=== PATIENT | male | born 1975 | race African-American/Black ===

== ENCOUNTER 2018-05-25 10:18 | Inpatient (IN) | payer OTHER ==
[~2018-05-25] VITALS: Ht 188 cm; Wt 78.1 kg
[2018-05-25] VITALS (12 sets, daily range): BP systolic 117–144; BP diastolic 86–106
[~2018-05-25 10:18] MED LIST: BLOOD PRESSURE; NOHOMEMEDS
[2018-05-25 11:07] LABS: HEMATOCRIT 31.5 % (38.0-50.0); HEMOGLOBIN 11.2 G/DL (12.5-16.6); MCH 29.1 PG (29.0-34.0); MCHC 35.6 G/DL (30.0-36.0); MCV 81.8 FL (86-99); PLATELET COUNT 157 K/uL (156-360); RBC DIS.WIDTH-CV 12.5 % (11.8-14.6); RBC DIS.WIDTH-SD 37.4 % (39-53); RED BLOOD COUNT 3.85 M/uL (4.00-5.50); WHITE BLOOD COUNT 9.3 K/uL (4.1-10.2)
[2018-05-25 11:15] LABS: INTER. NORMALIZED RATIO 1.5
[2018-05-25 11:18] LABS: ALBUMIN 3.4 g/dL (3.2-4.8); PTT 25.8 SEC (25-37)
[2018-05-25 11:19] LABS: CHLORIDE 89 mEq/L (99-109); SODIUM 133 mEq/L (136-147)
[2018-05-25 11:21] LABS: GLUCOSE 146 mg/dL (70-99); POTASSIUM 2.3 mEq/L (3.7-5.4); TOTAL PROTEIN 7.4 g/dL (6.4-8.3)
[2018-05-25 11:24] LABS: ALKALINE PHOSPHATASE 57 IU/L (3-129); SERUM ETHYL ALCOHOL < 10 mg/dL
[2018-05-25 11:25] LABS: CREATININE 3.9 mg/dL (0.6-1.3); GFR ESTIMATE (CALCULATED) 22 mL/min/ (58.99-99999)
[2018-05-25 11:26] LABS: AST (GOT) 24 IU/L (2-34); UREA NITROGEN (BUN) 35 mg/dL (9-23)
[2018-05-25 11:28] LABS: TROP-I INTERPRETATION POSITIVE
[2018-05-25 11:28] LABS: ALT (GPT) 10 IU/L (3-49); LIPASE 24 U/L (1.0-51.0)
[2018-05-25 11:42] LABS: TROPONIN-I 1.57 ng/mL (0.0-0.30)
[2018-05-25 12:02] LABS: APPEARANCE CLEAR ((CLEAR)); BILIRUBIN NEGATIVE; BLOOD SMALL; COLOR YELLOW ((YELLOW)); GLUCOSE (STRIP) 50; KETONES 5; LEUKOCYTES NEGATIVE; NITRITE NEGATIVE; PROTEIN (STRIP) >=500; UROBILINOGEN 0.2 MG/DL (0.2-1.0)
[2018-05-25 12:18] LABS: BACTERIA NONE SEEN /HPF; EPITHELIAL CELLS NONE SEEN /HPF; HYALINE CASTS 0-5 /LPF; MUCUS TRACE /LPF; RED BLOOD CELLS 0-5 /HPF (0-5); UCUL ADDED? NO; WHITE BLOOD CELLS 0-5 /HPF (0-5)
[2018-05-25] MEDS ORDERED: ADVIL200 MG PO (15:49)
[2018-05-25 19:05] LABS: CHLORIDE 96 mEq/L (99-109); SODIUM 135 mEq/L (136-147)
[2018-05-25 19:07] LABS: GLUCOSE 138 mg/dL (70-99)
[2018-05-25 19:09] LABS: POTASSIUM 2.9 mEq/L (3.7-5.4)
[2018-05-25 19:11] LABS: CREATININE 4.1 mg/dL (0.6-1.3); GFR ESTIMATE (CALCULATED) 21 mL/min/ (58.99-99999); UREA NITROGEN (BUN) 37 mg/dL (9-23)
[2018-05-25 19:16] LABS: TROP-I INTERPRETATION POSITIVE
[2018-05-25 19:17] LABS: TROPONIN-I 1.49 ng/mL (0.0-0.30)
[2018-05-26] VITALS (38 sets, daily range): BP systolic 123–1465; BP diastolic 76–106
[2018-05-26 03:10] LABS: CHLORIDE 96 mEq/L (99-109); POTASSIUM 2.9 mEq/L (3.7-5.4); SODIUM 136 mEq/L (136-147)
[2018-05-26 03:11] LABS: GLUCOSE 131 mg/dL (70-99)
[2018-05-26 03:15] LABS: CREATININE 4.4 mg/dL (0.6-1.3); GFR ESTIMATE (CALCULATED) 19 mL/min/ (58.99-99999)
[2018-05-26 03:16] LABS: UREA NITROGEN (BUN) 40 mg/dL (9-23)
[2018-05-26 03:22] LABS: TROP-I INTERPRETATION POSITIVE
[2018-05-26 03:23] LABS: TROPONIN-I 1.38 ng/mL (0.0-0.30)
[2018-05-27] VITALS (23 sets, daily range): BP systolic 130–162; BP diastolic 76–100
[2018-05-27 05:56] LABS: CHLORIDE 98 MEQ/L (99-109); CREATININE 4.2 MG/DL (0.6-1.3); GFR ESTIMATE (CALCULATED) 20 mL/min/ (58.99-99999); GLUCOSE 138 mg/dL (70-99); POTASSIUM 2.5 MEQ/L (3.7-5.4); SODIUM 134 MEQ/L (136-147); UREA NITROGEN (BUN) 34 mg/dL (9-23)
[2018-05-27 06:24] LABS: HEMATOCRIT 25.6 % (38.0-50.0); MCH 28.4 PG (29.0-34.0); MCV 83.7 FL (86-99); PLATELET COUNT 185 K/uL (156-360); RBC DIS.WIDTH-SD 39.5 % (39-53); WHITE BLOOD COUNT 9.9 K/uL (4.1-10.2)
[2018-05-27 06:29] LABS: HEMOGLOBIN 8.7 G/DL (12.5-16.6); RED BLOOD COUNT 3.06 M/uL (4.00-5.50)
[2018-05-27 08:52] LABS: PHOSPHORUS 2.5 mg/dL (2.5-4.9)
[2018-05-27 10:36] LABS: C4 COMPLEMENT 55 MG/DL (10-40)
[2018-05-27 10:38] LABS: CREATINE KINASE 76 IU/L (1-294); POTASSIUM 2.7 MEQ/L (3.7-5.4)
[2018-05-27 10:45] LABS: UR CREATININE CONCENTRATION 112.3 MG/DL
[2018-05-27 11:34] LABS: HEPATITIS B SURFACE ANTIBODY Nonreactive; HEPATITIS B SURFACE ANTIGEN Nonreactive; HEPATITIS C ANTIBODY Nonreactive
[2018-05-27 11:42] LABS: URINE TOTAL PROTEIN 142 MG/DL (0-10)
[2018-05-27 11:47] LABS: BENZODIAZEPINES, URINE SCREEN Negative (200 ng/mL)
[2018-05-27 15:35] LABS: CHLORIDE 98 MEQ/L (99-109); CREATININE 4.1 MG/DL (0.6-1.3); GFR ESTIMATE (CALCULATED) 21 mL/min/ (58.99-99999); GLUCOSE 181 mg/dL (70-99); POTASSIUM 2.8 MEQ/L (3.7-5.4); SODIUM 133 MEQ/L (136-147); UREA NITROGEN (BUN) 35 mg/dL (9-23)
[2018-05-27 23:50] LABS: PCO2 29 mm Hg (35-45); PO2 64 mm Hg (80-100); pH 7.48 (7.35-7.45)
[2018-05-27 23:51] LABS: BASE EXCESS -1.4 mEq/L (-3 to +3); BICARBONATE 21.3 mEq/L (22-26); CARBOXY HGB 1.9 % (0-5); COMMENTS - BLOOD GASES C+; FI02 21 %; METHEMOGLOBIN 0.9 % (0-1.5); SITE RR; TOTAL RESP RATE 32 resp/min
[2018-05-28] VITALS (44 sets, daily range): BP systolic 106–173; BP diastolic 49–115
[2018-05-28 03:38] LABS: BASOPHIL (%) 0.1 % (0-1); EOSINOPHIL (%) 0.1 % (0-5); HEMATOCRIT 23.5 % (38.0-50.0); HEMOGLOBIN 7.9 G/DL (12.5-16.6); IMMATURE GRANULOCYTE (%) 0.7 % (0.0-0.7); LYMPHOCYTE (%) 12.5 % (15-42); LYMPHOCYTE COUNT 1.8 K/uL (1.0-2.8); MCH 29.3 PG (29.0-34.0); MCHC 33.6 G/DL (30.0-36.0); MONOCYTE (%) 3.6 % (3-12); MONOCYTE COUNT 0.5 K/uL (0-0.8); NEUTROPHIL COUNT 11.7 K/uL (1.8-6.4); PLATELET COUNT 239 K/uL (156-360); RBC DIS.WIDTH-CV 13.4 % (11.8-14.6); RBC DIS.WIDTH-SD 41.9 % (39-53); WHITE BLOOD COUNT 14.1 K/uL (4.1-10.2)
[2018-05-28 03:43] LABS: INTER. NORMALIZED RATIO 1.4
[2018-05-28 03:55] LABS: CHLORIDE 103 mEq/L (99-109); POTASSIUM 3.6 mEq/L (3.7-5.4); SODIUM 137 mEq/L (136-147)
[2018-05-28 03:57] LABS: GLUCOSE 176 mg/dL (70-99)
[2018-05-28 04:01] LABS: CREATININE 4.6 mg/dL (0.6-1.3); GFR ESTIMATE (CALCULATED) 18 mL/min/ (58.99-99999)
[2018-05-28 04:02] LABS: UREA NITROGEN (BUN) 43 mg/dL (9-23)
[2018-05-28 04:08] LABS: TROP-I INTERPRETATION POSITIVE
[2018-05-28 04:14] LABS: TROPONIN-I 0.95 ng/mL (0.0-0.30)
[2018-05-28 05:51] LABS: APPEARANCE CLOUDY ((CLEAR)); BILIRUBIN NEGATIVE; BLOOD SMALL; COLOR YELLOW ((YELLOW)); GLUCOSE (STRIP) 150; KETONES NEGATIVE; LEUKOCYTES NEGATIVE; NITRITE NEGATIVE; PROTEIN (STRIP) 100
[2018-05-28 06:02] LABS: BACTERIA RARE /HPF; EPITHELIAL CELLS RARE /HPF; HYALINE CASTS 0-5 /LPF; MUCUS TRACE /LPF; UCUL ADDED? YES
[2018-05-28 12:50] LABS: FERRITIN 2132 NG/ML (22-322); IRON 29 MCG/DL (35-150); TRANSFERRIN (TIBC) 206.8 mg/dL (215-380); TRANSFERRIN SATUR. 14 % (20-55)
[2018-05-28 16:08] LABS: HEMOGLOBIN 7.7 G/DL (12.5-16.6); MCV 87.5 FL (86-99)
[2018-05-28 16:51] LABS: CHLORIDE 101 MEQ/L (99-109); GFR ESTIMATE (CALCULATED) 17 mL/min/ (58.99-99999); GLUCOSE 147 mg/dL (70-99); POTASSIUM 3.8 MEQ/L (3.7-5.4); SODIUM 135 MEQ/L (136-147); UREA NITROGEN (BUN) 52 mg/dL (9-23)
[2018-05-28 17:07] LABS: FOLIC ACID (FOLATE) 9.7 NG/ML (5.0-22.0)
[2018-05-28 21:06] LABS: COMMENTS - BLOOD GASES C+; FI02 21 %; PCO2 24 mm Hg (35-45); PO2 79 mm Hg (80-100); SITE LR; TOTAL RESP RATE 24 resp/min
[2018-05-28 21:07] LABS: BASE EXCESS -8.9 mEq/L (-3 to +3); BICARBONATE 14.9 mEq/L (22-26); CARBOXY HGB 1.8 % (0-5); METHEMOGLOBIN 1.3 % (0-1.5)
[2018-05-28 21:40] LABS: HEMATOCRIT 21.8 % (38.0-50.0); HEMOGLOBIN 7.4 G/DL (12.5-16.6); MCH 29.5 PG (29.0-34.0); MCHC 33.9 G/DL (30.0-36.0); MCV 86.9 FL (86-99); PLATELET COUNT 234 K/uL (156-360); RBC DIS.WIDTH-CV 13.8 % (11.8-14.6); RBC DIS.WIDTH-SD 42.9 % (39-53); RED BLOOD COUNT 2.51 M/uL (4.00-5.50); WHITE BLOOD COUNT 15.5 K/uL (4.1-10.2)
[2018-05-28 21:50] LABS: CHLORIDE 102 mEq/L (99-109); POTASSIUM 4.2 mEq/L (3.7-5.4); SODIUM 136 mEq/L (136-147)
[2018-05-28 21:52] LABS: GLUCOSE 157 mg/dL (70-99)
[2018-05-28 21:55] LABS: CREATININE 5.4 mg/dL (0.6-1.3); GFR ESTIMATE (CALCULATED) 15 mL/min/ (58.99-99999)
[2018-05-28 21:56] LABS: UREA NITROGEN (BUN) 59 mg/dL (9-23)
[2018-05-29] VITALS (21 sets, daily range): BP systolic 123–206; BP diastolic 14–142
[2018-05-29 05:42] LABS: HEMATOCRIT 22.8 % (38.0-50.0); HEMOGLOBIN 7.7 G/DL (12.5-16.6); MCH 29.4 PG (29.0-34.0); MCHC 33.8 G/DL (30.0-36.0); NRBC (%) 0.2 /100 WBC (0-0); PLATELET COUNT 260 K/uL (156-360); RBC DIS.WIDTH-CV 13.8 % (11.8-14.6); RBC DIS.WIDTH-SD 42.9 % (39-53); RED BLOOD COUNT 2.62 M/uL (4.00-5.50); WHITE BLOOD COUNT 17.6 K/uL (4.1-10.2)
[2018-05-29 06:23] LABS: ALBUMIN 3.1 G/DL (3.2-4.8); CHLORIDE 101 MEQ/L (99-109); CREATININE 5.5 MG/DL (0.6-1.3); GFR ESTIMATE (CALCULATED) 15 mL/min/ (58.99-99999); GLUCOSE 131 mg/dL (70-99); POTASSIUM 3.9 MEQ/L (3.7-5.4); SODIUM 137 MEQ/L (136-147); UREA NITROGEN (BUN) 61 mg/dL (9-23)
[2018-05-29 06:28] LABS: PHOSPHORUS 5.1 mg/dL (2.5-4.9)
[2018-05-29 09:36] LABS: COMMENTS - BLOOD GASES A+C+; DEVICE VENT; FI02 80 %; MECHANICAL RATE 18 resp/min; MODE ACVC; PEEP 10 CM/H20; SITE LR; TIDAL VOLUME 500 ML; TOTAL RESP RATE 18 resp/min
[2018-05-29 09:37] LABS: BASE EXCESS -5.2 mEq/L (-3 to +3); BICARBONATE 19.9 mEq/L (22-26); CARBOXY HGB 1.8 % (0-5); METHEMOGLOBIN 1.1 % (0-1.5); PCO2 36 mm Hg (35-45); PO2 106 mm Hg (80-100); pH 7.36 (7.35-7.45)
[2018-05-29 17:21] LABS: GLOMERULAR BASEMENT MEMB ABY+ <1.0 AI (<1.0); MYELOPEROXIDASE ANTIBODY (MPO) <1.0 AI (<1.0); PROTEINASE-3 ANTIBODY+ <1.0 AI (<1.0)
[2018-05-30] VITALS (18 sets, daily range): BP systolic 107–170; BP diastolic 63–94
[2018-05-30 05:00] LABS: COMMENTS - BLOOD GASES C+A+; SITE LR
[2018-05-30 05:01] LABS: BASE EXCESS 3.8 mEq/L (-3 to +3); BICARBONATE 27.6 mEq/L (22-26); CARBOXY HGB 1.5 % (0-5); DEVICE VENT; FI02 40 %; MECHANICAL RATE 18 resp/min; METHEMOGLOBIN 0.6 % (0-1.5); MODE AC; O2 SATURATION (CALCULATED) 94.5 % (95-99); PCO2 37 mm Hg (35-45); PEEP 10 CM/H20; PO2 62 mm Hg (80-100); TIDAL VOLUME 500 ML; TOTAL RESP RATE 18 resp/min; pH 7.48 (7.35-7.45)
[2018-05-30 05:08] LABS: HEMATOCRIT 23.4 % (38.0-50.0); HEMOGLOBIN 7.3 G/DL (12.5-16.6); MCHC 31.2 G/DL (30.0-36.0); MCV 89.7 FL (86-99); NRBC (%) 3.4 /100 WBC (0-0); PLATELET COUNT 270 K/uL (156-360); RBC DIS.WIDTH-CV 14.1 % (11.8-14.6); RBC DIS.WIDTH-SD 45.4 % (39-53); RED BLOOD COUNT 2.61 M/uL (4.00-5.50); WHITE BLOOD COUNT 10.3 K/uL (4.1-10.2)
[2018-05-30 06:11] LABS: ALBUMIN 2.7 G/DL (3.2-4.8); CHLORIDE 101 MEQ/L (99-109); PHOSPHORUS 3.4 mg/dL (2.5-4.9); POTASSIUM 3.4 MEQ/L (3.7-5.4); SODIUM 142 MEQ/L (136-147); UREA NITROGEN (BUN) 44 mg/dL (9-23)
[2018-05-30 06:20] LABS: CREATININE 4.5 MG/DL (0.6-1.3); GFR ESTIMATE (CALCULATED) 19 mL/min/ (58.99-99999); GLUCOSE 84 mg/dL (70-99)
[2018-05-30 20:53] LABS: UR CREATININE CONCENTRATION 86.3 MG/DL
[2018-05-30 22:49] LABS: CREATININE 4.6 mg/dL (0.6-1.3)
[2018-05-31] VITALS (21 sets, daily range): BP systolic 105–151; BP diastolic 66–108
[2018-05-31 06:46] LABS: ALBUMIN 2.9 G/DL (3.2-4.8); CHLORIDE 103 MEQ/L (99-109); POTASSIUM 3.9 MEQ/L (3.7-5.4); SODIUM 143 MEQ/L (136-147)
[2018-05-31 06:59] LABS: CREATININE 4.7 MG/DL (0.6-1.3); GFR ESTIMATE (CALCULATED) 18 mL/min/ (58.99-99999); GLUCOSE 89 mg/dL (70-99); UREA NITROGEN (BUN) 43 mg/dL (9-23)
[2018-05-31 07:07] LABS: PHOSPHORUS 5.3 mg/dL (2.5-4.9)
[2018-05-31 08:39] LABS: BASOPHIL (%) 0.5 % (0-1); BASOPHIL COUNT 0.1 K/uL (0-0.1); EOSINOPHIL (%) 2.4 % (0-5); EOSINOPHIL COUNT 0.2 K/uL (0-0.3); HEMATOCRIT 25.7 % (38.0-50.0); HEMOGLOBIN 7.9 G/DL (12.5-16.6); LYMPHOCYTE (%) 13.7 % (15-42); LYMPHOCYTE COUNT 1.4 K/uL (1.0-2.8); MCHC 30.7 G/DL (30.0-36.0); MONOCYTE (%) 7.5 % (3-12); MONOCYTE COUNT 0.8 K/uL (0-0.8); NEUTROPHIL (%) 74.9 % (45-76); NEUTROPHIL COUNT 7.5 K/uL (1.8-6.4); NRBC (%) 1.9 /100 WBC (0-0); PLATELET COUNT 296 K/uL (156-360); RBC DIS.WIDTH-CV 14.7 % (11.8-14.6); RBC DIS.WIDTH-SD 49.3 % (39-53); RED BLOOD COUNT 2.72 M/uL (4.00-5.50); WHITE BLOOD COUNT 10.1 K/uL (4.1-10.2)
[2018-05-31 09:11] LABS: MCV 94.5 FL (86-99)
[2018-05-31 15:12] LABS: RENIN ACTIVITY 32.75 ng/mL/h (0.25-5.82)
[2018-05-31 18:43] LABS: CHLORIDE 108 MEQ/L (99-109); CREATININE 4.6 MG/DL (0.6-1.3); GFR ESTIMATE (CALCULATED) 18 mL/min/ (58.99-99999); GLUCOSE 122 mg/dL (70-99); SODIUM 146 MEQ/L (136-147); UREA NITROGEN (BUN) 39 mg/dL (9-23)
[2018-06-01] VITALS (26 sets, daily range): BP systolic 95–151; BP diastolic 52–91
[2018-06-01 04:29] LABS: Cryoglobulin, Qualitative Negative (Negative)
[2018-06-01 05:28] LABS: BASOPHIL (%) 0.3 % (0-1); EOSINOPHIL (%) 4.3 % (0-5); EOSINOPHIL COUNT 0.5 K/uL (0-0.3); HEMATOCRIT 23.5 % (38.0-50.0); HEMOGLOBIN 7.5 G/DL (12.5-16.6); IMMATURE GRANULOCYTE (%) 0.9 % (0.0-0.7); LYMPHOCYTE (%) 14.9 % (15-42); LYMPHOCYTE COUNT 1.6 K/uL (1.0-2.8); MCH 29.9 PG (29.0-34.0); MCHC 31.9 G/DL (30.0-36.0); MCV 93.6 FL (86-99); MONOCYTE (%) 6.4 % (3-12); MONOCYTE COUNT 0.7 K/uL (0-0.8); NEUTROPHIL (%) 73.2 % (45-76); NEUTROPHIL COUNT 7.6 K/uL (1.8-6.4); NRBC (%) 0.5 /100 WBC (0-0); PLATELET COUNT 326 K/uL (156-360); RBC DIS.WIDTH-SD 49.5 % (39-53); RED BLOOD COUNT 2.51 M/uL (4.00-5.50); WHITE BLOOD COUNT 10.4 K/uL (4.1-10.2)
[2018-06-01 05:32] LABS: CHLORIDE 104 mEq/L (99-109); POTASSIUM 4.2 mEq/L (3.7-5.4); SODIUM 140 mEq/L (136-147)
[2018-06-01 05:33] LABS: MAGNESIUM 2.1 mg/dL (1.3-2.7)
[2018-06-01 05:34] LABS: GLUCOSE 108 mg/dL (70-99)
[2018-06-01 05:38] LABS: GFR ESTIMATE (CALCULATED) 25 mL/min/ (58.99-99999); PHOSPHORUS 4.5 mg/dL (2.5-4.9)
[2018-06-01 05:39] LABS: UREA NITROGEN (BUN) 24 mg/dL (9-23)
[2018-06-01 05:44] LABS: CREATININE 3.5 mg/dL (0.6-1.3)
[2018-06-02] VITALS (23 sets, daily range): BP systolic 97–145; BP diastolic 53–98
[2018-06-02 05:18] LABS: COMMENTS - BLOOD GASES C+; DEVICE VENT; FI02 40 %; MODE AC; SITE LR
[2018-06-02 05:19] LABS: MECHANICAL RATE 16 resp/min; O2 SATURATION (CALCULATED) 96.8 % (95-99); PCO2 40 mm Hg (35-45); PEEP 6 CM/H20; PO2 138 mm Hg (80-100); TIDAL VOLUME 500 ML; TOTAL RESP RATE 16 resp/min; pH 7.43 (7.35-7.45)
[2018-06-02 05:20] LABS: BICARBONATE 26.5 mEq/L (22-26); CARBOXY HGB 1.5 % (0-5); METHEMOGLOBIN 1.1 % (0-1.5)
[2018-06-02 05:40] LABS: BASOPHIL (%) 0.3 % (0-1); EOSINOPHIL COUNT 0.3 K/uL (0-0.3); HEMATOCRIT 22.3 % (38.0-50.0); HEMOGLOBIN 7.1 G/DL (12.5-16.6); IMMATURE GRANULOCYTE (%) 0.8 % (0.0-0.7); LYMPHOCYTE (%) 12.2 % (15-42); LYMPHOCYTE COUNT 1.2 K/uL (1.0-2.8); MCH 29.3 PG (29.0-34.0); MCHC 31.8 G/DL (30.0-36.0); MCV 92.1 FL (86-99); MONOCYTE (%) 10.8 % (3-12); MONOCYTE COUNT 1.1 K/uL (0-0.8); NEUTROPHIL (%) 72.9 % (45-76); NEUTROPHIL COUNT 7.2 K/uL (1.8-6.4); PLATELET COUNT 328 K/uL (156-360); RBC DIS.WIDTH-CV 15.1 % (11.8-14.6); RBC DIS.WIDTH-SD 49.1 % (39-53); RED BLOOD COUNT 2.42 M/uL (4.00-5.50); WHITE BLOOD COUNT 9.9 K/uL (4.1-10.2)
[2018-06-02 06:09] LABS: CHLORIDE 103 MEQ/L (99-109); GFR ESTIMATE (CALCULATED) 18 mL/min/ (58.99-99999); GLUCOSE 116 mg/dL (70-99); POTASSIUM 3.7 MEQ/L (3.7-5.4); SODIUM 140 MEQ/L (136-147); UREA NITROGEN (BUN) 33 mg/dL (9-23)
[2018-06-02 06:11] LABS: CREATININE 4.6 MG/DL (0.6-1.3)
[2018-06-03] VITALS (23 sets, daily range): BP systolic 104–144; BP diastolic 60–97
[2018-06-03 05:38] LABS: BASOPHIL (%) 0.3 % (0-1); EOSINOPHIL (%) 4.1 % (0-5); EOSINOPHIL COUNT 0.4 K/uL (0-0.3); HEMATOCRIT 22.2 % (38.0-50.0); IMMATURE GRANULOCYTE (%) 0.7 % (0.0-0.7); LYMPHOCYTE (%) 11.7 % (15-42); LYMPHOCYTE COUNT 1.2 K/uL (1.0-2.8); MCH 29.2 PG (29.0-34.0); MCHC 31.5 G/DL (30.0-36.0); MCV 92.5 FL (86-99); MONOCYTE (%) 10.3 % (3-12); MONOCYTE COUNT 1.1 K/uL (0-0.8); NEUTROPHIL (%) 72.9 % (45-76); NEUTROPHIL COUNT 7.8 K/uL (1.8-6.4); PLATELET COUNT 336 K/uL (156-360); RBC DIS.WIDTH-SD 49.7 % (39-53); WHITE BLOOD COUNT 10.6 K/uL (4.1-10.2)
[2018-06-03 06:03] LABS: ALBUMIN 2.7 G/DL (3.2-4.8); ALKALINE PHOSPHATASE 63 IU/L (3-129); ALT (GPT) 66 IU/L (3-49); AST (GOT) 72 IU/L (2-34); CHLORIDE 105 MEQ/L (99-109); CREATININE 5.3 MG/DL (0.6-1.3); GFR ESTIMATE (CALCULATED) 16 mL/min/ (58.99-99999); GLUCOSE 139 mg/dL (70-99); MAGNESIUM 2.3 mg/dl (1.3-2.7); PHOSPHORUS 5.3 mg/dL (2.5-4.9); SODIUM 143 MEQ/L (136-147); TOTAL BILIRUBIN 0.7 MG/DL (0.0-1.0); TOTAL PROTEIN 5.5 G/DL (6.4-8.3); UREA NITROGEN (BUN) 40 mg/dL (9-23)
[2018-06-04] VITALS (20 sets, daily range): BP systolic 124–172; BP diastolic 72–117
[2018-06-04 06:58] LABS: ALBUMIN 2.9 G/DL (3.2-4.8); CHLORIDE 108 MEQ/L (99-109); CREATININE 5.4 MG/DL (0.6-1.3); GFR ESTIMATE (CALCULATED) 15 mL/min/ (58.99-99999); PHOSPHORUS 5.5 mg/dL (2.5-4.9); POTASSIUM 4.1 MEQ/L (3.7-5.4); SODIUM 146 MEQ/L (136-147); UREA NITROGEN (BUN) 43 mg/dL (9-23)
[2018-06-04 07:19] LABS: GLUCOSE 96 mg/dL (70-99)
[2018-06-05] VITALS (10 sets, daily range): BP systolic 158–184; BP diastolic 92–115
[2018-06-05 09:41] LABS: BASOPHIL (%) 0.6 % (0-1); BASOPHIL COUNT 0.1 K/uL (0-0.1); EOSINOPHIL (%) 2.4 % (0-5); EOSINOPHIL COUNT 0.3 K/uL (0-0.3); HEMATOCRIT 23.5 % (38.0-50.0); HEMOGLOBIN 7.4 G/DL (12.5-16.6); IMMATURE GRANULOCYTE (%) 0.4 % (0.0-0.7); LYMPHOCYTE (%) 11.9 % (15-42); LYMPHOCYTE COUNT 1.4 K/uL (1.0-2.8); MCH 28.7 PG (29.0-34.0); MCHC 31.5 G/DL (30.0-36.0); MCV 91.1 FL (86-99); MONOCYTE (%) 9.6 % (3-12); MONOCYTE COUNT 1.1 K/uL (0-0.8); NEUTROPHIL (%) 75.1 % (45-76); PLATELET COUNT 381 K/uL (156-360); RBC DIS.WIDTH-CV 14.8 % (11.8-14.6); RBC DIS.WIDTH-SD 48.7 % (39-53); RED BLOOD COUNT 2.58 M/uL (4.00-5.50); WHITE BLOOD COUNT 11.9 K/uL (4.1-10.2)
[2018-06-05 10:20] LABS: ALKALINE PHOSPHATASE 64 IU/L (3-129); ALT (GPT) 49 IU/L (3-49); AST (GOT) 35 IU/L (2-34); CHLORIDE 110 MEQ/L (99-109); CREATININE 5.3 MG/DL (0.6-1.3); DIRECT BILIRUBIN 0.2 mg/dL (0.0-0.3); GFR ESTIMATE (CALCULATED) 16 mL/min/ (58.99-99999); GLUCOSE 119 mg/dL (70-99); PHOSPHORUS 3.6 mg/dL (2.5-4.9); POTASSIUM 4.1 MEQ/L (3.7-5.4); SODIUM 148 MEQ/L (136-147); TOTAL BILIRUBIN 0.5 MG/DL (0.0-1.0); TOTAL PROTEIN 6.1 G/DL (6.4-8.3); UREA NITROGEN (BUN) 52 mg/dL (9-23)
[2018-06-05 11:05] LABS: Neutrophil Cytoplasmic Aby Negative
[2018-06-06] VITALS (11 sets, daily range): BP systolic 137–184; BP diastolic 79–100
[2018-06-06 06:49] LABS: CHLORIDE 114 MEQ/L (99-109); CREATININE 4.9 MG/DL (0.6-1.3); GFR ESTIMATE (CALCULATED) 17 mL/min/ (58.99-99999); GLUCOSE 124 mg/dL (70-99); PHOSPHORUS 2.6 mg/dL (2.5-4.9); SODIUM 153 MEQ/L (136-147); UREA NITROGEN (BUN) 55 mg/dL (9-23)
[2018-06-06 06:51] LABS: POTASSIUM 3.2 MEQ/L (3.7-5.4)
[2018-06-06 07:54] LABS: HEMATOCRIT 20.2 % (38.0-50.0); MCH 28.6 PG (29.0-34.0); MCHC 30.7 G/DL (30.0-36.0); MCV 93.1 FL (86-99); PLATELET COUNT 348 K/uL (156-360); RBC DIS.WIDTH-CV 15.2 % (11.8-14.6); RBC DIS.WIDTH-SD 50.4 % (39-53); RED BLOOD COUNT 2.17 M/uL (4.00-5.50); WHITE BLOOD COUNT 12.1 K/uL (4.1-10.2)
[2018-06-06 07:56] LABS: HEMOGLOBIN 6.2 G/DL (12.5-16.6)
[2018-06-06 10:40] LABS: HEMATOCRIT 20.2 % (38.0-50.0); MCV 90.2 FL (86-99); SODIUM 150 mEq/L (136-147)
[2018-06-06 10:41] LABS: HEMOGLOBIN 6.9 G/DL (12.5-16.6)
[2018-06-06 10:45] LABS: CREATININE 5.1 mg/dL (0.6-1.3); GFR ESTIMATE (CALCULATED) 16 mL/min/ (58.99-99999)
[2018-06-06 10:46] LABS: UREA NITROGEN (BUN) 53 mg/dL (9-23)
[2018-06-06 10:50] LABS: CHLORIDE 118 mEq/L (99-109); GLUCOSE 196 mg/dL (70-99); POTASSIUM 3.9 mEq/L (3.7-5.4)
[2018-06-06 16:51] LABS: C DIFF TOXIN NEGATIVE (NEGATIVE)
[2018-06-06 16:53] LABS: STOOL OCCULT BLD 1ST SPECIMEN NEGATIVE
[2018-06-07] VITALS (8 sets, daily range): BP systolic 124–170; BP diastolic 34–104
[2018-06-07 06:11] LABS: HEMATOCRIT 21.4 % (38.0-50.0); MCH 29.4 PG (29.0-34.0); MCHC 32.2 G/DL (30.0-36.0); MCV 91.1 FL (86-99); NRBC (%) 0.3 /100 WBC (0-0); PLATELET COUNT 305 K/uL (156-360); RBC DIS.WIDTH-CV 15.1 % (11.8-14.6); RBC DIS.WIDTH-SD 49.4 % (39-53); RED BLOOD COUNT 2.35 M/uL (4.00-5.50); WHITE BLOOD COUNT 11.5 K/uL (4.1-10.2)
[2018-06-07 06:16] LABS: ALBUMIN 2.8 G/DL (3.2-4.8); CHLORIDE 116 MEQ/L (99-109); CREATININE 4.3 MG/DL (0.6-1.3); GFR ESTIMATE (CALCULATED) 20 mL/min/ (58.99-99999); PHOSPHORUS 2.9 mg/dL (2.5-4.9); POTASSIUM 3.4 MEQ/L (3.7-5.4); SODIUM 151 MEQ/L (136-147); UREA NITROGEN (BUN) 46 mg/dL (9-23)
[2018-06-07 06:17] LABS: HEMOGLOBIN 6.9 G/DL (12.5-16.6)
[2018-06-07 06:28] LABS: GLUCOSE 115 mg/dL (70-99)
[2018-06-07 07:54] LABS: HEMATOCRIT 21.5 % (38.0-50.0); HEMOGLOBIN 7.1 G/DL (12.5-16.6); MCV 91.5 FL (86-99)
[2018-06-07 14:30] LABS: STOOL OCCULT BLD 1ST SPECIMEN POSITIVE
[2018-06-07 15:58] LABS: HEMOGLOBIN 7.2 G/DL (12.5-16.6); MCV 90.9 FL (86-99)
[2018-06-08] VITALS (14 sets, daily range): BP systolic 107–135; BP diastolic 56–85
[2018-06-08 06:17] LABS: HEMATOCRIT 21.4 % (38.0-50.0); MCH 29.4 PG (29.0-34.0); MCHC 31.8 G/DL (30.0-36.0); MCV 92.6 FL (86-99); NRBC (%) 0.3 /100 WBC (0-0); PLATELET COUNT 298 K/uL (156-360); RBC DIS.WIDTH-CV 15.1 % (11.8-14.6); RED BLOOD COUNT 2.31 M/uL (4.00-5.50); WHITE BLOOD COUNT 11.9 K/uL (4.1-10.2)
[2018-06-08 06:22] LABS: HEMOGLOBIN 6.8 G/DL (12.5-16.6)
[2018-06-08 06:52] LABS: ALBUMIN 2.9 G/DL (3.2-4.8); CHLORIDE 108 MEQ/L (99-109); CREATININE 4.2 MG/DL (0.6-1.3); GFR ESTIMATE (CALCULATED) 20 mL/min/ (58.99-99999); GLUCOSE 91 mg/dL (70-99); POTASSIUM 3.8 MEQ/L (3.7-5.4); UREA NITROGEN (BUN) 38 mg/dL (9-23)
[2018-06-08 06:54] LABS: PHOSPHORUS 4.2 mg/dL (2.5-4.9); SODIUM 141 MEQ/L (136-147)
[2018-06-08 21:06] LABS: HEMATOCRIT 27.6 % (38.0-50.0); HEMOGLOBIN 8.9 G/DL (12.5-16.6); MCV 91.1 FL (86-99)
[2018-06-09 03:54] VITALS: BP 132/80
[2018-06-09 05:50] LABS: BASOPHIL (%) 0.7 % (0-1); BASOPHIL COUNT 0.1 K/uL (0-0.1); EOSINOPHIL (%) 3.3 % (0-5); EOSINOPHIL COUNT 0.4 K/uL (0-0.3); HEMATOCRIT 25.6 % (38.0-50.0); HEMOGLOBIN 8.3 G/DL (12.5-16.6); IMMATURE GRANULOCYTE (%) 0.5 % (0.0-0.7); LYMPHOCYTE (%) 20.4 % (15-42); LYMPHOCYTE COUNT 2.5 K/uL (1.0-2.8); MCH 29.3 PG (29.0-34.0); MCHC 32.4 G/DL (30.0-36.0); MCV 90.5 FL (86-99); MONOCYTE (%) 6.8 % (3-12); MONOCYTE COUNT 0.8 K/uL (0-0.8); NEUTROPHIL (%) 68.3 % (45-76); NEUTROPHIL COUNT 8.3 K/uL (1.8-6.4); NRBC (%) 0.2 /100 WBC (0-0); PLATELET COUNT 302 K/uL (156-360); RBC DIS.WIDTH-CV 15.4 % (11.8-14.6); RBC DIS.WIDTH-SD 49.2 % (39-53); WHITE BLOOD COUNT 12.2 K/uL (4.1-10.2)
[2018-06-09 05:52] LABS: RED BLOOD COUNT 2.83 M/uL (4.00-5.50)
[2018-06-09 06:17] LABS: CHLORIDE 108 MEQ/L (99-109); GFR ESTIMATE (CALCULATED) 22 mL/min/ (58.99-99999); GLUCOSE 89 mg/dL (70-99); SODIUM 140 MEQ/L (136-147); UREA NITROGEN (BUN) 32 mg/dL (9-23)
[2018-06-09 07:19] VITALS: BP 120/77
[2018-06-09 08:26] LABS: ABSOLUTE RETICULOCYTE CT. 0.07 M/uL (0.02-0.08); IMM.RETIC FRACTION 30.1 % (3-19); RETIC HGB EQUIVALENT 33.8 (28-36); RETICULOCYTE COUNT 2.6 % (0.5-1.8)
[2018-06-09 09:51] LABS: STOOL OCCULT BLD 1ST SPECIMEN POSITIVE
[2018-06-09] MEDS ORDERED: ASPIR-LOW81 MG PO (13:20)
[2018-06-09 16:10] VITALS: BP 111/58; BP 134/78
[2018-06-09 23:14] VITALS: BP 115/64
[2018-06-10 05:55] LABS: BASOPHIL (%) 0.6 % (0-1); BASOPHIL COUNT 0.1 K/uL (0-0.1); EOSINOPHIL (%) 2.2 % (0-5); EOSINOPHIL COUNT 0.3 K/uL (0-0.3); HEMATOCRIT 25.7 % (38.0-50.0); HEMOGLOBIN 8.3 G/DL (12.5-16.6); IMMATURE GRANULOCYTE (%) 0.4 % (0.0-0.7); LYMPHOCYTE (%) 18.9 % (15-42); LYMPHOCYTE COUNT 2.1 K/uL (1.0-2.8); MCH 29.5 PG (29.0-34.0); MCHC 32.3 G/DL (30.0-36.0); MCV 91.5 FL (86-99); MONOCYTE (%) 6.8 % (3-12); MONOCYTE COUNT 0.8 K/uL (0-0.8); NEUTROPHIL (%) 71.1 % (45-76); NEUTROPHIL COUNT 7.9 K/uL (1.8-6.4); PLATELET COUNT 331 K/uL (156-360); RBC DIS.WIDTH-CV 15.6 % (11.8-14.6); RBC DIS.WIDTH-SD 50.5 % (39-53); RED BLOOD COUNT 2.81 M/uL (4.00-5.50); WHITE BLOOD COUNT 11.1 K/uL (4.1-10.2)
[2018-06-10 06:17] LABS: CHLORIDE 109 MEQ/L (99-109); GFR ESTIMATE (CALCULATED) 22 mL/min/ (58.99-99999); GLUCOSE 92 mg/dL (70-99); SODIUM 141 MEQ/L (136-147); UREA NITROGEN (BUN) 29 mg/dL (9-23)
[2018-06-10 06:57] VITALS: BP 126/76
[2018-06-10 15:02] VITALS: BP 122/83
[2018-06-10 20:03] VITALS: BP 116/75
[2018-06-10 23:47] VITALS: BP 135/80
[2018-06-11 06:06] LABS: CHLORIDE 109 MEQ/L (99-109); CREATININE 4.1 MG/DL (0.6-1.3); GFR ESTIMATE (CALCULATED) 21 mL/min/ (58.99-99999); GLUCOSE 130 mg/dL (70-99); POTASSIUM 3.9 MEQ/L (3.7-5.4); SODIUM 140 MEQ/L (136-147); UREA NITROGEN (BUN) 23 mg/dL (9-23)
[2018-06-11 07:53] VITALS: BP 137/85
[2018-06-11] MEDS ORDERED: AMLODIPINE BESY10 MG PO (11:03)
[2018-06-11] MEDS ORDERED: APRESOLINE25 MG PO (11:03)
[2018-06-11] MEDS ORDERED: FAMOTIDINE20 MG PO (11:03)
[2018-06-11] MEDS ORDERED: ATORVASTATIN CA40 MG PO (11:03)
[2018-06-11] MEDS ORDERED: LABETALOL HCL200 MG PO (11:03)
== END 2018-06-11 15:22 | disposition home health service (06) | DRG 304 ==
LOC: EME 10:18 → 5SOUTH 15:47 → 4WEST 15:47 → EDOF 15:47 → ENRESERV 15:48 → 4WEST 20:08 → ENRESERV 06-04 15:56 → 5SOUTH 06-04 18:19 → ENRESERV 06-05 11:43 → CANRESERV 06-05 11:43 → ENRESERV 06-05 11:47 → CANRESERV 06-05 11:47 → ENRESERV 06-05 11:55 → 4EAST 06-05 12:41 → ENRESERV 06-07 16:03 → 5SOUTH 06-07 18:28 → ENPENDDIS 06-11 12:09 → 5SOUTH 06-11 15:22
PROVIDERS: Emergency Medicine; Internal Medicine; Internal Medicine Critical Care Medicine; Internal Medicine Nephrology; Physician Assistant; Specialist; Surgery
PROC: 0TB13ZX Excision of Left Kidney, Percutaneous Approach, Diagnostic (ICD-10-PCS; principal; 2018-05-28)
PROC: 02HV33Z Insertion of Infusion Device into Superior Vena Cava, Percutaneous Approach (ICD-10-PCS; 2018-05-29)
PROC: 0BH18EZ Insertion of Endotracheal Airway into Trachea, Via Natural or Artificial Opening Endoscopic (ICD-10-PCS; 2018-05-29)
PROC: 5A1955Z Respiratory Ventilation, Greater than 96 Consecutive Hours (ICD-10-PCS; 2018-05-29)
PROC: 5A1D70Z Performance of Urinary Filtration, Intermittent, Less than 6 Hours Per Day (ICD-10-PCS; 2018-05-29)
PROC: 30233N1 Transfusion of Nonautologous Red Blood Cells into Peripheral Vein, Percutaneous Approach (ICD-10-PCS; 2018-06-06)
DX: I16.1 Hypertensive emergency (principal); J81.0 Acute pulmonary edema; N17.9 Acute kidney failure, unspecified; I13.11 Hypertensive heart and chronic kidney disease without heart failure, with stage 5 chronic kidney disease, or end stage renal disease; N18.6 End stage renal disease; J96.01 Acute respiratory failure with hypoxia; J69.0 Pneumonitis due to inhalation of food and vomit; G93.41 Metabolic encephalopathy; I42.8 Other cardiomyopathies; R74.8 Abnormal levels of other serum enzymes; E46 Unspecified protein-calorie malnutrition; E87.6 Hypokalemia; E87.1 Hypo-osmolality and hyponatremia; E83.39 Other disorders of phosphorus metabolism; E87.0 Hyperosmolality and hypernatremia; E87.4 Mixed disorder of acid-base balance; I31.3 Pericardial effusion (noninflammatory); I47.2 Ventricular tachycardia; R18.8 Other ascites; R19.7 Diarrhea, unspecified; R19.5 Other fecal abnormalities; E87.70 Fluid overload, unspecified; R31.9 Hematuria, unspecified; R80.9 Proteinuria, unspecified; D63.1 Anemia in chronic kidney disease; D50.9 Iron deficiency anemia, unspecified; I08.1 Rheumatic disorders of both mitral and tricuspid valves; F12.90 Cannabis use, unspecified, uncomplicated; F14.10 Cocaine abuse, uncomplicated; Z91.14 Patient's other noncompliance with medication regimen; Z87.891 Personal history of nicotine dependence; Z82.49 Family history of ischemic heart disease and other diseases of the circulatory system
CPT/HCPCS: 31720; 36600; 70450; 71045; 71046; 71250; 71275; 74018; 74174; 74176; 74230; 76705; 76770; 77012; 80048; 80048 91; 80053; 80069; 80076; 80306 90; 81003; 81050; 82088 90; 82272; 82436; 82550; 82565; 82570; 82575; 82595 90; 82607; 82728; 82746; 82948; 83520 90; 83540; 83605; 83690; 83735; 83880; 84100; 84132 91; 84156; 84244 90; 84300; 84466; 84484; 85014; 85018; 85025; 85027; 85046; 85610; 85730; 86021 90; 86038; 86160; 86334; 86335; 86430; 86706; 86803; 86850; 86900; 86901; 86920; 87040; 87070; 87086; 87205; 87340; 87493; 87641; 88305; 88313 90; 88346 90; 88348 90; 92526 GN; 92610 GN; 92611 GN; 93005; 93306; 94002; 94003; 94799; 97530 GO; 97530 GP; 99281; 99285; C1753; C1788; G0480; J0295; J0360; J0881; J1200; J1630; J1644; J1756; J1940; J2060; J2250; J2270; J2405; J2543; J2704; J2765; J3010; J3475; J3480; J7030; J7040; J7050; J7070; P9016; P9040; S0028